=== PATIENT | male | born 1985 | race Caucasian/White ===

== ENCOUNTER 2016-11-16 23:29 | Emergency (ER) | payer BC ==
[~2016-11-16] VITALS: Ht 177.8 cm; Wt 69.2 kg
[2016-11-16 23:39] VITALS: BP 133/81
[2016-11-17] MEDS ORDERED: LIDOCAINE 1%, 20ML SQ ONE (00:30)
[2016-11-17] MEDS ORDERED: DIPH,PERTUSS(ACELL),TET VAC/PF 0.5 ML IM-VACC ONE ×2 (00:30→00:51)
[2016-11-17] MEDS ORDERED: LIDOCAINE 1%, 20ML ONE (00:34)
[2016-11-17] MEDS ORDERED: BACITRACIN ZINC OINT 500U/GM, 0.9 GM ONE (00:56)
== END 2016-11-17 01:07 | disposition home or self-care (01) ==
LOC: ED 11-17 00:24
DX: S61.012A Laceration without foreign body of left thumb without damage to nail, initial encounter (principal); W45.8XXA Other foreign body or object entering through skin, initial encounter; Y93.89 Activity, other specified; Y92.009 Unspecified place in unspecified non-institutional (private) residence as the place of occurrence of the external cause; Y99.9 Unspecified external cause status
CPT/HCPCS: 12001; 90471; 90715; 99283; J3490